=== PATIENT | female | born 1995 | race Caucasian/White ===

== ENCOUNTER 2016-12-06 01:36 | Emergency (ER) | payer OTHER ==
[~2016-12-06] VITALS: Ht 160 cm; Wt 127.0 kg
[2016-12-06] MEDS ORDERED: ONDANSETRON PF 4 MG/2 ML VIAL. ONE (02:04)
[2016-12-06 02:06] VITALS: BP 157/94
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
[2016-12-06] MEDS ORDERED: ONDA4TAB10 PO (02:16)
[2016-12-06] MEDS ORDERED: IV NORMAL SALINE 1000ML BAG 1,000 ML IV ONE (02:30)
[2016-12-06] MEDS ORDERED: ONDANSETRON PF 4 MG/2 ML VIAL. IV ONE (02:30)
== END 2016-12-06 03:08 | disposition home or self-care (01) ==
LOC: ER 01:36
DX: F10.129 Alcohol abuse with intoxication, unspecified (principal); R11.2 Nausea with vomiting, unspecified
CPT/HCPCS: 81025; 96361; 96374; 99284; J2405; J7030